=== PATIENT | female | born 1950 | race Caucasian/White ===

== ENCOUNTER 2017-02-01 08:30 | Day surgery (SDC) | payer MEDICARE, OTHER ==
--- NOTE | ~2017-02-01 | EGD ---
EGD REPORT [facility] [address] [address] NAME: TJ CR : 49 STATUS : REG [facility]#: [id number] AGE: 66 ADM/REG DATE : 02/01/17 MR#: [id number] REPORT SERV DATE: 02/01/17 DICTATED BY: MARK TURNER DATE: 02/01/17 REPORT STATUS : Draft [facility]ANS[facility]: [facility] DATE: 02/01/17 Endoscopy Center Patient Name: Tj Cr Date of : 1950 Attending MD: MARK TURNER MD Procedure Date No Time: 02/01/2017 Procedure: Colonoscopy Indications: Screening for colorectal malignant neoplasm, Last colonoscopy: August 2007 Referring MD: SID ENCISO, MANJULA ANN III, MD Medicines: Propofol per Anesthesia Complications: No immediate complications. Estimated blood loss: None. Procedure: Pre-Anesthesia Assessment: - After reviewing the risks and benefits, the patient was deemed in satisfactory condition to undergo the procedure. - Prior to the procedure, a History and Physical was performed, and patient medications and allergies were reviewed. The patient's tolerance of previous anesthesia was also reviewed. The risks and benefits of the procedure and the sedation options and risks were discussed with the patient. All questions were answered, and informed consent was obtained. Prior Anticoagulants: The patient has taken no previous anticoagulant or antiplatelet agents. ASA Grade Assessment: III - A patient with severe systemic disease. After reviewing the risks and benefits, the patient was deemed in satisfactory condition to undergo the procedure. After I obtained informed consent, the scope was passed under direct vision. Throughout the procedure, the patient's blood pressure, pulse, and oxygen saturations were monitored continuously. The CF [id number] was introduced through the anus and advanced to the cecum, identified by appendiceal orifice and ileocecal valve. The colonoscopy was performed with difficulty due to restricted mobility of the colon and significant looping. Successful completion of the procedure was aided by applying abdominal pressure. The ileocecal valve was photographed. The patient tolerated the procedure well. The quality of the bowel preparation was adequate to identify polyps 6 mm and larger in size. The bowel preparation used was SUPREP. Scope withdrawal time was greater than 7 minutes. Findings: EGD REPORT [address] [place]. [address] NAME: TJ CR : 49 STATUS : REG [facility] PAT#: [id number] AGE: 66 ADM/REG DATE : 02/01/17 MR#: [id number] REPORT SERV DATE: 02/01/17 DICTATED BY: MARK TURNER DATE: 02/01/17 REPORT STATUS : Draft TRANSCRIBED BY: [email or web address] DATE: 02/01/17 The perianal and digital rectal examinations were normal. Pertinent negatives include normal sphincter tone. A few small-mouthed diverticula were found in the sigmoid colon. The exam was otherwise without abnormality. Impression: - Mild diverticulosis in the sigmoid colon. - The examination was otherwise normal. Recommendation: - Discharge patient to home (ambulatory). - High fiber diet indefinitely. - Continue present medications. - Collect Hemoccults on three spontaneously passed stools annually. - Repeat colonoscopy in 10 years for screening purposes. - Return to GI clinic PRN. - Patient has a contact number available for emergencies. The signs and symptoms of potential delayed complications were discussed with the patient. Return to normal activities tomorrow. Written discharge instructions were provided to the patient. Procedure Code(s): --- Professional --- G0121, Colorectal cancer screening; colonoscopy on individual not meeting criteria for high risk Diagnosis Code(s): --- Professional --- K57.30, Diverticulosis of large intestine without perforation or abscess without bleeding Z12.11, Encounter for screening for malignant neoplasm of colon CPT copyright 2013 [employer]. All rights reserved. The codes documented in this report are preliminary and upon card puncher review may be revised to meet current compliance requirements. MARK TURNER MD 02/01/2017 10:31 AM This report has been signed electronically. Number of Addenda: 0 Note Initiated On: 02/01/2017 9:18 AM Scope Withdrawal Time 0 hours 7 minutes 23 seconds [id number] [id number]
--- NOTE | ~2017-02-01 | EGD ---
EGD REPORT [facility] [address] [place] [address] NAME: TJ CR : 49 STATUS : REG [facility]#: [id number] AGE: 66 ADM/REG DATE : 02/01/17 MR#: [id number] REPORT SERV DATE: 02/01/17 DICTATED BY: MARK TURNER DATE: 02/01/17 REPORT STATUS : Draft [facility] DATE: 02/01/17 Endoscopy Center Patient Name: Tj Cr Date of : 1950 Attending MD: MARK TURNER MD Procedure Date No Time: 02/01/2017 Procedure: Upper GI endoscopy Indications: Follow-up of gastro-esophageal reflux disease, Eructation Referring MD: MANJULA SIM III, MD Medicines: Propofol per Anesthesia Complications: No immediate complications. Estimated blood loss: None. Procedure: Pre-Anesthesia Assessment: - After reviewing the risks and benefits, the patient was deemed in satisfactory condition to undergo the procedure. - Prior to the procedure, a History and Physical was performed, and patient medications and allergies were reviewed. The patient's tolerance of previous anesthesia was also reviewed. The risks and benefits of the procedure and the sedation options and risks were discussed with the patient. All questions were answered, and informed consent was obtained. Prior Anticoagulants: The patient has taken no previous anticoagulant or antiplatelet agents. ASA Grade Assessment: III - A patient with severe systemic disease. After reviewing the risks and benefits, the patient was deemed in satisfactory condition to undergo the procedure. After obtaining informed consent, the endoscope was passed under direct vision. Throughout the procedure, the patient's blood pressure, pulse, and oxygen saturations were monitored continuously. The GIF [id number] was introduced through the mouth, and advanced to the third part of duodenum. The upper GI endoscopy was accomplished without difficulty. The patient tolerated the procedure well. Findings: The examined esophagus was normal. Evidence of a Pete fundoplication was found in the cardia. The anastomosis was characterized by healthy appearing mucosa. The examined duodenum was normal. Impression: - Normal esophagus. - A Pete fundoplication was found, anastomosis characterized by healthy appearing mucosa. EGD REPORT [address] [address] NAME: TJ CR : 49 STATUS : REG [facility]#: [id number] AGE: 66 ADM/REG DATE : 02/01/17 MR#: [id number] REPORT SERV DATE: 02/01/17 DICTATED BY: MARK TURNER DATE: 02/01/17 REPORT STATUS : Draft [facility] BY: [facility] DATE: 02/01/17 - Normal examined duodenum. Recommendation: - Discharge patient to home (ambulatory). - Return to previous diet. - Continue present medications. - Perform a colonoscopy today. - Patient has a contact number available for emergencies. The signs and symptoms of potential delayed complications were discussed with the patient. Return to normal activities tomorrow. Written discharge instructions were provided to the patient. Procedure Code(s): --- Professional --- 63231, Esophagogastroduodenoscopy, flexible, transoral; diagnostic, including collection of specimen(s) by brushing or washing, when performed (separate procedure) Diagnosis Code(s): --- Professional --- Z98.89, Other specified postprocedural states K21.9, Gastro-esophageal reflux disease without esophagitis R14.2, Eructation CPT copyright 2013 [employer]. All rights reserved. The codes documented in this report are preliminary and upon anesthesiology crna review may be revised to meet current compliance requirements. MARK TURNER MD 02/01/2017 10:10 AM This report has been signed electronically. Number of Addenda: 0 Note Initiated On: 02/01/2017 9:19 AM Scope Withdrawal Time 0 hours 0 minutes 0 seconds [id number] [id number]
[~2017-02-01 08:30] MED LIST: BENICAR20 PO; CRESTOR5 MG PO; NEXIUM40 PO; PREV15 PO; PRINZIDE1 TA1 PO
== END 2017-02-01 23:59 | disposition home or self-care (01) ==
LOC: DMU 08:30
PROVIDERS: Internal Medicine Gastroenterology
PROC: 0DJ08ZZ Inspection of Upper Intestinal Tract, Via Natural or Artificial Opening Endoscopic (ICD-10-PCS; principal; 2017-02-01 10:30)
PROC: 0DJD8ZZ Inspection of Lower Intestinal Tract, Via Natural or Artificial Opening Endoscopic (ICD-10-PCS; 2017-02-01 10:30)
DX: Z12.11 Encounter for screening for malignant neoplasm of colon (principal); K57.30 Diverticulosis of large intestine without perforation or abscess without bleeding; R14.2 Eructation; G43.909 Migraine, unspecified, not intractable, without status migrainosus; I10 Essential (primary) hypertension; M19.90 Unspecified osteoarthritis, unspecified site; G47.33 Obstructive sleep apnea (adult) (pediatric); E66.01 Morbid (severe) obesity due to excess calories; K21.9 Gastro-esophageal reflux disease without esophagitis; Z98.890 Other specified postprocedural states; Z88.0 Allergy status to penicillin; Z98.41 Cataract extraction status, right eye; Z98.42 Cataract extraction status, left eye; Z96.1 Presence of intraocular lens
CPT/HCPCS: 43235; G0121; J2370